=== PATIENT | female | born 1970 | race Caucasian/White ===

== ENCOUNTER 2022-01-01 17:55 | Emergency (ER) | payer BC | END 2022-01-01 21:30 | disposition home or self-care (01) | LOC: ER1 17:55 | DX: S06.9X1A Unspecified intracranial injury with loss of consciousness of 30 minutes or less, initial encounter (principal); S01.01XA Laceration without foreign body of scalp, initial encounter; Z88.0 Allergy status to penicillin; W22.8XXA Striking against or struck by other objects, initial encounter; Y92.009 Unspecified place in unspecified non-institutional (private) residence as the place of occurrence of the external cause | CPT/HCPCS: 12001; 70450; 72125; 72128; 99284; J2405 ==

== ENCOUNTER → 2022-01-22 | Outpatient (CLI) | payer BC | LOC: US 08:00 → CT 08:00 → US 09:30 | DX: R93.0 Abnormal findings on diagnostic imaging of skull and head, not elsewhere classified (principal); Q76.1 Klippel-Feil syndrome; M47.812 Spondylosis without myelopathy or radiculopathy, cervical region | CPT/HCPCS: ECHO; 72156; 93306; A9577 ==

== ENCOUNTER 2022-05-17 22:47 | Emergency (ER) | payer BC ==
[2022-05-18 00:25] LABS: HEMOGLOBIN 14.4 gm/dl (12.3-15.3); RED BLOOD COUNT 4.42 M/UL (4.00-5.10); WHITE BLOOD COUNT 10.1 K/UL (4.5-11.0)
[2022-05-18] MEDS ORDERED: HYDROCODON-ACE1 EAC4 PO (03:40)
[2022-05-18] MEDS ORDERED: ZOFRAN ODT 4 MG4 MG PO (03:48)
[2022-05-18] MEDS ORDERED: FLOMAX 0.4 MG0.4 MG PO (03:48)
[2022-05-18] MEDS ORDERED: OMNICEF 300 MG300 MG PO (03:54)
== END 2022-05-18 04:18 | disposition home or self-care (01) ==
LOC: ER1 22:47
PROVIDERS: Physician Assistant
DX: N13.6 Pyonephrosis (principal); Z88.0 Allergy status to penicillin
CPT/HCPCS: 80053; 81001; 82150; 83690; 85025; 87086; 96372; 99284; J0696; J1885